=== PATIENT | female | born 1995 | race Caucasian/White ===

== ENCOUNTER 2019-04-19 16:24 | Emergency (ER) | payer BC ==
[~2019-04-19] VITALS: Ht 162.6 cm; Wt 63.5 kg
--- NOTE | 2019-04-19 16:35 | NUR ---
ekg done and Md notified.
[2019-04-19] MEDS ORDERED: QUET100T PO (17:00)
[2019-04-19] MEDS ORDERED: GABA600T12 PO (17:00)
--- NOTE | 2019-04-19 17:14 | NUR ---
PT IS IN ROOM #2A. DR LEIVA EVALUATED THE PT.
[2019-04-19 17:35] LABS: BASOPHILS # (AUTO) 0.1 K/uL (0.0-8.0); BASOPHILS % (AUTO) 0.8 % (0.0-2.0); EOSINOPHILS # (AUTO) 0.1 K/uL (0.0-0.7); EOSINOPHILS % (AUTO) 1.3 % (0.0-7.0); HEMATOCRIT 38.3 % (31.2-41.9); HEMOGLOBIN 12.8 g/dL (10.9-14.3); LYMPHOCYTES # (AUTO) 3.1 K/uL (20.0-40.0); LYMPHOCYTES % (AUTO) 35.8 % (20.5-51.5); MEAN CORPUSCULAR HEMOGLOBIN 30.8 uug (24.7-32.8); MEAN CORPUSCULAR HGB CONC 34 g/dL (32.3-35.6); MONOCYTES # (AUTO) 0.4 K/uL (2.0-10.0); MONOCYTES % (AUTO) 4.3 % (0.0-11.0); NEUTROPHILS % (AUTO) 57.8 % (38.5-71.5); PLATELET COUNT (AUTO) 229 K/uL (179-408); RED BLOOD CELL COUNT(AUTO) 4.16 MIL/uL (3.63-4.92); WHITE BLOOD COUNT (AUTO) 8.7 K/uL (3.8-11.8)
[2019-04-19 17:42] LABS: CREATININE 0.8 mg/dL (0.6-1.3); POTASSIUM 4.1 mmol/L (3.5-5.1)
[2019-04-19 17:48] LABS: BILIRUBIN,DIRECT 0.1 mg/dL (0.0-0.2); BILIRUBIN,TOTAL 0.2 mg/dL (0.2-1.0); TOTAL PROTEIN, SERUM 7.4 g/dL (6.4-8.2)
[2019-04-19] MEDS ORDERED: IBUPROFEN 600 MG TABLET PO ONE (18:45)
--- NOTE | 2019-04-19 19:15 | NUR ---
Report received from Vikas OSCAR. Patient AAO NAD noted.
--- NOTE | 2019-04-19 19:16 | NUR ---
Repeat EKG done.
[2019-04-19] MEDS ORDERED: IBUPROFEN 600 MG TABLET ONE (19:18)
--- NOTE | 2019-04-19 21:10 | NUR ---
Patient discharged to home in stable conditon. Written and verbal after care instructions given. Patient verbalizes understanding of instructions.
[2019-04-19 21:21] VITALS: BP 106/56
== END 2019-04-19 21:10 | disposition home or self-care (01) ==
LOC: ER 16:26
DX: R07.89 Other chest pain (principal); R94.31 Abnormal electrocardiogram [ECG] [EKG]; F17.290 Nicotine dependence, other tobacco product, uncomplicated; Z79.899 Other long term (current) drug therapy
CPT/HCPCS: 36415; 70030-TC; 71045; 85025; 93005; A4663